=== PATIENT | male | born 1990 | race Caucasian/White ===

== ENCOUNTER 2023-12-12 14:14 | Emergency (ER) | payer SELFPAY ==
--- NOTE | ~2023-12-12 | XR_ITS ---
EXAMINATION: XR chest 2V 12/12/2023 14:53 INDICATION: Chest pain and palpitations PROCEDURE: 2 view chest COMPARISON: No prior studies for comparison. FINDINGS: The lungs are clear. The cardiomediastinal silhouette is within normal limits. There are no pleural effusions. There is no pneumothorax suspected. IMPRESSION: 1: NO ACUTE CARDIOPULMONARY DISEASE. Reviewed, dictated and finalized at location B.
--- NOTE | 2023-12-12 14:17 | ECG_ITS ---
SEE SCANNED COPY FOR CONFIRMED REPORT MTDD
[2023-12-12 14:18] VITALS: BP 138/82; PULSE 72; RESP 18; TEMP 36.4; O2SAT 100
[2023-12-12 14:46] LABS: Basophils Absolute Auto 0.1 K/mm3 (0.0-0.1); Basophils Percent Auto 0.7 % (0.2-1.2); Eosinophils Absolute Auto 0.1 K/mm3 (0-0.3); Hematocrit 55.1 % (42.0-52.0); Hemoglobin 18.7 g/dL (14.0-18.0); Immature Granulocyte Absolute 0.02 K/mm3 (0.00-0.031); Immature Granulocyte Percent A 0.2 % (0-0.5); Lymphocytes Absolute Auto 2.05 K/mm3 (0.9-3.2); Lymphocytes Percent Auto 24.3 % (18.3-44.2); Mean Corpuscular HGB Conc 33.9 g/dl (32-36); Mean Corpuscular Hemoglobin 32.9 pg (26-34); Mean Corpuscular Volume 96.8 fl (80-100); Mean Platelet Volume 10.9 fl (7.4-10.4); Monocytes Absolute Auto 0.5 K/mm3 (0.1-0.6); Monocytes Percent Auto 5.7 % (2.6-8.5); Neutrophils Absolute Auto 5.7 K/mm3 (1.3-6.7); Neutrophils Percent Auto 68.1 % (45.5-73.1); Platelet Count Result 155 k/mm3 (150-375); Red Blood Count 5.69 M/mm3 (4.6-6.20); Red Cell Distribution Width 13.2 % (11.5-14.5); White Blood Count 8.4 K/mm3 (4.5-10.0)
[2023-12-12 14:56] LABS: Alanine Aminotransferase 76 U/L (6-50); Albumin Level 4.8 g/dL (3.5-5.1); Alkaline Phosphatase 93 U/L (38-126); Anion Gap 7 mmol/L (4-12); Aspartate Amino Transferase 54 U/L (17-59); Blood Urea Nitrogen 9 mg/dL (9-20); Calcium 9.7 mg/dL (8.4-10.2); Carbon Dioxide 27 mmol/L (22-30); Chloride 104 mmol/L (98-107); Estimated CRCL calculation 135 ml/min; Estimated Glomerular Filt Rate > 60; Glucose 104 mg/dL (65-110); Lipase 65 U/L (23-300); Potassium 3.9 mmol/L (3.4-5.0); Sodium 138 mmol/L (137-145)
[2023-12-12 15:08] LABS: Troponin I < 0.012 ng/mL (0.000-0.034)
[2023-12-12 15:46] LABS: INR 0.9
[2023-12-12 16:09] LABS: Partial Thromboplastin Time 24.7 Seconds (22.3-36.8); Prothrombin Time 12.5 Seconds (11.1-14.7)
[2023-12-12 16:27] VITALS: PULSE 65
[2023-12-12 16:28] VITALS: BP 124/87; PULSE 63; RESP 12; O2SAT 99
[2023-12-12 17:03] LABS: Magnesium 1.8 mg/dL (1.6-2.3)
[2023-12-12 17:22] VITALS: BP 118/67; PULSE 75; RESP 14; O2SAT 99
[2023-12-12 17:47] LABS: Troponin I < 0.012 ng/mL (0.000-0.034)
[2023-12-12 18:00] VITALS: O2SAT 99
--- NOTE | 2023-12-12 18:25 | ED.CHESTPAIN ---
HPI - Chest Pain General Chief Complaint: Chest Pain Stated Complaint: Chest pain Time Seen by Provider: 12/12/23 16:32 Source: patient Mode of arrival: ambulatory Limitations: no limitations History of Present Illness HPI narrative: 33-year-old otherwise healthy here with complaints of intermittent left-sided chest pain radiating into left arm. Patient states his pain is mostly in his left axilla. He denies any shortness of breath, no history of any previous CAD. MD complaint: chest pain Onset (ago): week(s) Timing of current episode: episodic Pain location: left chest Pain radiation: left arm Severity: moderate Quality: aching Relieving factors: nothing Exacerbating factors: nothing Risk Factors Coronary artery disease risk factors: none Related Data Allergies Allergy/AdvReac Type Severity Reaction Status Date / Time erythromycin base AdvReac Nausea and Verified 12/12/23 16:28 Vomiting Review of Systems Review of Systems: All systems reviewed & are unremarkable except as noted in HPI and below Constitutional: Constitutional: Reports no additional constitutional complaints Eyes: Eyes: Reports no additional eye complaints ENT: Reports system reviewed and no additional complaints, except as documented Cardiovascular: Cardiovascular: Reports as per HPI and Reports no additional cardiovascular complaints Respiratory: Respiratory: Reports no additional respiratory complaints Gastrointestinal: Gastrointestinal: Reports no additional gastrointestinal complaints Musculoskeletal: Musculoskeletal: Reports no additional musculoskeletal complaints Neurologic: Reports system reviewed and no additional complaints, except as documented Exam Narrative: GENERAL: Well-appearing, well-nourished, and in no acute distress. HEAD: Normocephalic, atraumatic. EYES: PERRLA and EOMI. ENT: Nares clear, no rhinorrhea or epistaxis. Mucous membranes moist. NECK: Supple. CHEST: Clear to auscultation. No respiratory distress. HEART: Regular rate and rhythm. No murmur heard. Normal peripheral pulses. ABDOMEN: Soft, nontender, nondistended, normal active bowel sounds. EXTREMITIES: Normal range of motion. No edema. SKIN: Warm, dry, no rash. NEURO: No focal deficits. Alert and oriented x3. PSYCH: Normal mood and affect. Course Course Emergency Course: Patient comes resting in no discomfort. Informed him about his lab work, EKG findings. Cause of his pain is unknown at this time advised him to follow-up with cardiology. Vital Signs Vital signs: Vital Signs Temperature 36.4 C 12/12/23 14:18 Pulse Rate 72 12/12/23 14:18 Respiratory Rate 18 12/12/23 14:18 Blood Pressure 138/82 12/12/23 14:18 Pulse Oximetry 100 12/12/23 14:18 Oxygen Delivery Room Air 12/12/23 14:18 Temperature 36.4 C 12/12/23 14:18 Pulse Rate 75 12/12/23 17:22 Respiratory Rate 14 12/12/23 17:22 Blood Pressure 118/67 12/12/23 17:22 Pulse Oximetry 99 12/12/23 17:22 Oxygen Delivery Room Air 12/12/23 14:18 MDM - Chest Pain Lab Data 12/12/23 14:38 12/12/23 14:38 Labs: Lab Results 12/12/23 12/12/23 12/12/23 Range/Units 14:38 15:31 17:13 WBC 8.4 (4.5-10.0) K/mm3 RBC 5.69 (4.6-6.20) M/mm3 Hgb 18.7 H (14.0-18.0) g/dL Hct 55.1 H (42.0-52.0) % MCV 96.8 (80-100) fl MCH 32.9 (26-34) pg MCHC 33.9 (32-36) g/dl RDW 13.2 (11.5-14.5) % Plt Count 155 (150-375) k/mm3 MPV 10.9 H (7.4-10.4) fl Immature Gran % (Auto) 0.2 (0-0.5) % Neut % (Auto) 68.1 (45.5-73.1) % Lymph % (Auto) 24.3 (18.3-44.2) % [place] % (Auto) 5.7 (2.6-8.5) % Eos % (Auto) 1.0 (0-4.4) % Baso % (Auto) 0.7 (0.2-1.2) % Lymph # (Auto) 2.05 (0.9-3.2) K/mm3 [place] # (Auto) 0.5 (0.1-0.6) K/mm3 Eos # (Auto) 0.1 (0-0.3) K/mm3 Baso # (Auto) 0.1 (0.0-0.1) K/mm3 Abs Immat Gran (auto) 0.02 (0.00-0.031) K/mm3 Absolute Neuts (auto
[2023-12-12 18:45] VITALS: BP 123/76; PULSE 74; RESP 16; O2SAT 99
== END 2023-12-12 18:48 | disposition home or self-care (01) ==
PROVIDERS: Emergency Medicine; General Practice; Emergency Provider Family Medicine
DX: R07.9 Chest pain, unspecified (principal); I44.0 Atrioventricular block, first degree
CPT/HCPCS: 36415; 71046; 80053; 83690; 83735; 84484; 85025; 85610; 85730; 93005; 99284